=== PATIENT | male | born 1955 | race Caucasian/White ===

== ENCOUNTER 2021-10-30 07:49 | Inpatient (IN) ==
[2021-10-30 08:20] LABS: Basophils % 0.2 % (0.0-0.8); Hemoglobin 16.8 GM/DL (14.0-18.0); Immature Granulocytes % 0.6 %; Immature Granulocytes Absolute 0.12 #; Lymphocytes # 0.7 10*3/uL (1.4-4.0); Lymphocytes % 3.4 % (21.2-54.2); Mean Corpuscular HGB Conc 33.6 GM/DL (32-36); Mean Corpuscular Volume 91.2 FL (87-102); Mean Platelet Volume 10.3 FL (9.6-12.0); Monocytes # 1.2 10*3/uL (0.11-0.8); Monocytes % 5.7 % (1.7-12.7); Neutrophils % 90.1 % (38.7-73.9); Platelet Count 306 T/CUMM (130-400); Red Blood Count 5.48 MC/CUMM (3.8-5.5)
[2021-10-30 08:29] LABS: INR 1.1; PT Patient Result 11.6 SECS (10.1-12.1)
[2021-10-30 08:34] LABS: Albumin 3.7 G/DL (3.4-5.0); Bilirubin,Total 5.1 MG/DL (0.20-1.00); Osmolality,Calculated 279.8 MOS/KG (273-304); Potassium 5.1 MMOL/L (3.5-5.1); Total Protein 7.5 G/DL (6.4-8.2)
[2021-10-30] MEDS ORDERED: SODIUM CHLORIDE 0.9% 1,000 ML IV STA (08:34)
[2021-10-30] MEDS ORDERED: HYDROmorphone 1 MG/1 ML SYRINGE IV STA ×3 (08:34→12:12)
[2021-10-30] MEDS ORDERED: ONDANSETRON 4 MG/2 ML VIAL IV STA (08:36)
[2021-10-30 08:39] LABS: Lymphocytes 2 % (20-55); Platelet Estimate Adequate; Total Cells Counted 100
[2021-10-30 09:34] LABS: Mucus,Urine Many /LPF (Occasional); RBC,Urine 4 /HPF (0-4)
[2021-10-30 09:36] LABS: Bilirubin,Urine Large mg/dL (Negative); Blood, Urine Negative (Negative); Glucose,Urine (UA) Negative (Negative); Ketones,Urine Trace mg/dL (Negative); Nitrite,Urine Negative (Negative); Protein,Urine 100 mg/dL (Negative); Urine Appearance Slightly Cloudy (Clear); Urine Color Amber (Yellow); Urine Specific Gravity > 1.030 (1.001-1.035); Urine Urobilinogen > 8.0 eU/dL (<2.0); Urine pH 5.5 (4.5-8.0)
[2021-10-30] MEDS ORDERED: PIPERACILLIN/TAZOBACTAM 3,375 MG in SODIUM CHLORIDE 0.9% 100 ML IV STA (11:10)
[2021-10-30] MEDS ORDERED: ONDANSETRON 4 MG/2 ML VIAL IV PRN (12:54)
[2021-10-30] MEDS ORDERED: SODIUM CHLORIDE 0.9% 1,000 ML IV SCH (13:00)
[2021-10-30] MEDS ORDERED: HYDROmorphone 1 MG/1 ML SYRINGE IV PRN ×2 (13:01→13:30)
[2021-10-30] MEDS ORDERED: ENOXAPARIN 40 MG/0.4 ML SYRINGE SUBCUT SCH (14:00)
[2021-10-30] MEDS: SODIUM CHLORIDE 0.9% 1,000 ML IV SCH ×2 (14:20→20:44)
[2021-10-30] MEDS: PANTOPRAZOLE 40 MG VIAL IV SCH (14:20)
[2021-10-30 15:36] LABS: Basophils % 0.1 % (0.0-0.8); Hematocrit 48.4 VOL% (42.0-52.0); Hemoglobin 15.9 GM/DL (14.0-18.0); Immature Granulocytes % 0.6 %; Immature Granulocytes Absolute 0.15 #; Lymphocytes # 0.7 10*3/uL (1.4-4.0); Lymphocytes % 2.7 % (21.2-54.2); Mean Corpuscular HGB Conc 32.9 GM/DL (32-36); Mean Corpuscular Volume 91.8 FL (87-102); Mean Platelet Volume 10.1 FL (9.6-12.0); Monocytes # 1.9 10*3/uL (0.11-0.8); Monocytes % 7.8 % (1.7-12.7); Neutrophils % 88.8 % (38.7-73.9); Platelet Count 282 T/CUMM (130-400); Red Blood Count 5.27 MC/CUMM (3.8-5.5); Red Cell Distribution Width 13.2 % (9.3-17.3); White Blood Count 24.4 T/CUMM (4-12)
[2021-10-30] MEDS ORDERED: DIAZEPAM 5 MG TABLET PO ONE (15:37)
[2021-10-30 15:59] LABS: Lymphocytes 1 % (20-55); Platelet Estimate Adequate; Total Cells Counted 100
[2021-10-30] MEDS: ONDANSETRON 4 MG/2 ML VIAL IV PRN (16:55)
[2021-10-30] MEDS: HYDROmorphone 1 MG/1 ML SYRINGE IV PRN ×2 (16:55→21:42)
[2021-10-30] MEDS: PIPERACILLIN/TAZOBACTAM 3,375 MG in SODIUM CHLORIDE 0.9% 100 ML IV SCH (20:59)
[2021-10-31] MEDS: HYDROmorphone 1 MG/1 ML SYRINGE IV PRN ×6 (04:11→21:46)
[2021-10-31] MEDS: PIPERACILLIN/TAZOBACTAM 3,375 MG in SODIUM CHLORIDE 0.9% 100 ML IV SCH ×2 (04:26→13:00)
[2021-10-31 06:20] LABS: Calcium 8.1 MG/DL (8.5-10.1)
[2021-10-31 06:31] LABS: Albumin 2.8 G/DL (3.4-5.0); Bilirubin,Direct 1.37 MG/DL (0.0-0.20); Bilirubin,Indirect 1.3 MG/DL (0.0-1.0); Bilirubin,Total 2.7 MG/DL (0.20-1.00); Osmolality,Calculated 274.1 MOS/KG (273-304); Total Protein 6.6 G/DL (6.4-8.2)
[2021-10-31] MEDS: SODIUM CHLORIDE 0.9% 1,000 ML IV SCH ×3 (07:06→18:06)
[2021-10-31] MEDS: ONDANSETRON 4 MG/2 ML VIAL IV PRN (08:33)
[2021-10-31] MEDS: PANTOPRAZOLE 40 MG VIAL IV SCH (09:39)
[2021-10-31 10:06] LABS: Basophils % 0.1 % (0.0-0.8); Hematocrit 47.1 VOL% (42.0-52.0); Hemoglobin 15.3 GM/DL (14.0-18.0); Immature Granulocytes % 1.4 %; Immature Granulocytes Absolute 0.43 #; Lymphocytes # 0.6 10*3/uL (1.4-4.0); Lymphocytes % 2.1 % (21.2-54.2); Mean Corpuscular HGB Conc 32.5 GM/DL (32-36); Mean Corpuscular Volume 94.2 FL (87-102); Mean Platelet Volume 10.7 FL (9.6-12.0); Monocytes # 2.2 10*3/uL (0.11-0.8); Monocytes % 7.4 % (1.7-12.7); Platelet Count 237 T/CUMM (130-400); Red Cell Distribution Width 13.6 % (9.3-17.3)
[2021-10-31 10:43] LABS: Lymphocytes 1 % (20-55); Platelet Estimate Normal; Polychromasia Slight; Total Cells Counted 100
[2021-10-31] MEDS: MEROPENEM 500 MG in SODIUM CHLORIDE 0.9% 100 ML IV SCH ×2 (14:55→20:48)
[2021-11-01] MEDS: HYDROmorphone 1 MG/1 ML SYRINGE IV PRN ×5 (01:17→19:39)
[2021-11-01] MEDS: SODIUM CHLORIDE 0.9% 1,000 ML IV SCH ×6 (02:15→19:47)
[2021-11-01] MEDS: MEROPENEM 500 MG in SODIUM CHLORIDE 0.9% 100 ML IV SCH ×4 (03:45→19:48)
[2021-11-01 06:50] LABS: Basophils # 0.1 10*3/uL (0.0-0.2); Basophils % 0.2 % (0.0-0.8); Eosinophils # 0.1 10*3/uL (0.0-0.87); Eosinophils % 0.3 % (0.00-10.9); Hematocrit 43.7 VOL% (42.0-52.0); Immature Granulocytes % 2.7 %; Immature Granulocytes Absolute 0.77 #; Lymphocytes % 3.4 % (21.2-54.2); Mean Corpuscular Volume 93.8 FL (87-102); Mean Platelet Volume 10.1 FL (9.6-12.0); Monocytes # 2.1 10*3/uL (0.11-0.8); Monocytes % 7.4 % (1.7-12.7); Platelet Count 197 T/CUMM (130-400); Red Blood Count 4.66 MC/CUMM (3.8-5.5); Red Cell Distribution Width 13.4 % (9.3-17.3); White Blood Count 28.7 T/CUMM (4-12)
[2021-11-01 07:17] LABS: Albumin 2.6 G/DL (3.4-5.0); Bilirubin,Total 1.9 MG/DL (0.20-1.00); Calcium 8.2 MG/DL (8.5-10.1); Potassium 4.3 MMOL/L (3.5-5.1); Total Protein 6.4 G/DL (6.4-8.2)
[2021-11-01 07:22] LABS: Risk Ratio 3.25; Thyroid Stimulating Hormone 0.659 uIU/ml (0.358-3.74)
[2021-11-01 08:09] LABS: Band Neutrophils 1 % (0-10); Lymphocytes 3 % (20-55); Total Cells Counted 100
[2021-11-01 08:10] LABS: Platelet Estimate Normal; Polychromasia Slight
[2021-11-01] MEDS: ONDANSETRON 4 MG/2 ML VIAL IV PRN ×2 (09:01→19:38)
[2021-11-01] MEDS: PANTOPRAZOLE 40 MG VIAL IV SCH (09:01)
[2021-11-01] MEDS ORDERED: hydrALAZINE 20 MG/1 ML VIAL IV PRN (12:18)
[2021-11-01] MEDS: lisinopriL 20 MG TABLET PO SCH ×2 (14:47→21:11)
[2021-11-02] MEDS: HYDROmorphone 1 MG/1 ML SYRINGE IV PRN ×6 (00:32→15:12)
[2021-11-02] MEDS: SODIUM CHLORIDE 0.9% 1,000 ML IV SCH ×4 (01:41→22:44)
[2021-11-02] MEDS: MEROPENEM 500 MG in SODIUM CHLORIDE 0.9% 100 ML IV SCH ×4 (02:17→20:35)
[2021-11-02] MEDS ORDERED: DIAZEPAM 5 MG TABLET PO ONE (06:00)
[2021-11-02] MEDS: LEVOTHYROXINE 112 MCG TABLET PO SCH (06:02)
[2021-11-02 06:40] LABS: Basophils % 0.2 % (0.0-0.8); Eosinophils # 0.2 10*3/uL (0.0-0.87); Eosinophils % 0.9 % (0.00-10.9); Hematocrit 42.1 VOL% (42.0-52.0); Hemoglobin 13.7 GM/DL (14.0-18.0); Immature Granulocytes % 2.3 %; Immature Granulocytes Absolute 0.55 #; Lymphocytes # 1.1 10*3/uL (1.4-4.0); Lymphocytes % 4.5 % (21.2-54.2); Mean Corpuscular HGB Conc 32.5 GM/DL (32-36); Mean Corpuscular Volume 93.6 FL (87-102); Mean Platelet Volume 10.1 FL (9.6-12.0); Monocytes # 1.9 10*3/uL (0.11-0.8); Neutrophils % 84.1 % (38.7-73.9); Platelet Count 203 T/CUMM (130-400); Red Cell Distribution Width 13.2 % (9.3-17.3); White Blood Count 23.7 T/CUMM (4-12)
[2021-11-02 06:59] LABS: Albumin 2.3 G/DL (3.4-5.0); Bilirubin,Total 1.3 MG/DL (0.20-1.00); Calcium 8.3 MG/DL (8.5-10.1); Potassium 3.9 MMOL/L (3.5-5.1); Total Protein 6.1 G/DL (6.4-8.2)
[2021-11-02 07:02] LABS: Lymphocytes 1 % (20-55); Microcytosis Slight; Total Cells Counted 100
[2021-11-02 07:03] LABS: Platelet Estimate Normal
[2021-11-02] MEDS: PANTOPRAZOLE 40 MG VIAL IV SCH (09:14)
[2021-11-02] MEDS: lisinopriL 10 MG TABLET PO SCH (20:33)
[2021-11-03] MEDS: MEROPENEM 500 MG in SODIUM CHLORIDE 0.9% 100 ML IV SCH ×4 (02:36→20:30)
[2021-11-03] MEDS: SODIUM CHLORIDE 0.9% 1,000 ML IV SCH ×2 (04:47→13:16)
[2021-11-03 05:04] LABS: Basophils # 0.1 10*3/uL (0.0-0.2); Basophils % 0.3 % (0.0-0.8); Eosinophils # 0.3 10*3/uL (0.0-0.87); Eosinophils % 1.5 % (0.00-10.9); Hematocrit 39.6 VOL% (42.0-52.0); Immature Granulocytes % 0.9 %; Immature Granulocytes Absolute 0.19 #; Lymphocytes # 0.9 10*3/uL (1.4-4.0); Lymphocytes % 4.1 % (21.2-54.2); Mean Corpuscular HGB Conc 32.8 GM/DL (32-36); Mean Corpuscular Volume 93.2 FL (87-102); Monocytes # 1.9 10*3/uL (0.11-0.8); Neutrophils % 84.2 % (38.7-73.9); Platelet Count 210 T/CUMM (130-400); Red Blood Count 4.25 MC/CUMM (3.8-5.5); White Blood Count 21.1 T/CUMM (4-12)
[2021-11-03 05:28] LABS: Albumin 2.3 G/DL (3.4-5.0); Bilirubin,Total 1.2 MG/DL (0.20-1.00); Osmolality,Calculated 274.7 MOS/KG (273-304); Potassium 4.4 MMOL/L (3.5-5.1); Total Protein 5.5 G/DL (6.4-8.2)
[2021-11-03 05:31] LABS: Eosinophils 2 % (0-10); Lymphocytes 4 % (20-55); Platelet Estimate Adequate; Total Cells Counted 100
[2021-11-03] MEDS: LEVOTHYROXINE 112 MCG TABLET PO SCH (06:04)
[2021-11-03] MEDS: PANTOPRAZOLE 40 MG VIAL IV SCH (08:50)
[2021-11-03] MEDS ORDERED: INDOCYANINE GREEN 25 MG VIAL IV ONE (09:45)
[2021-11-03] MEDS ORDERED: DEXAMETHASONE 4 MG/1 ML VIAL ONE (13:11)
[2021-11-03] MEDS ORDERED: ONDANSETRON 4 MG/2 ML VIAL ONE (13:11)
[2021-11-03] MEDS ORDERED: ROCURONIUM 50 MG/5 ML VIAL IV ONE (13:11)
[2021-11-03] MEDS ORDERED: propofoL 200 MG/20 ML VIAL IV ONE (13:11)
[2021-11-03] MEDS ORDERED: ACETAMINOPHEN INJ 1,000 MG/100 ML VIAL IV ONE (13:11)
[2021-11-03] MEDS ORDERED: MIDAZOLAM 2 MG/2 ML VIAL ONE (13:11)
[2021-11-03] MEDS ORDERED: fentaNYL 100 MCG/2 ML VIAL ONE ×2 (13:11→14:32)
[2021-11-03] MEDS ORDERED: SEVOFLURANE 1 UNIT/15 MINUTE INH ONE (13:11)
[2021-11-03] MEDS ORDERED: TISSUE ADHESIVE 1 EACH APPLICATOR TOP ONE (13:54)
[2021-11-03] MEDS ORDERED: BUPIVACAINE MPF 0.25% 10 ML VIAL ONE (13:54)
[2021-11-03] MEDS ORDERED: LIDOCAINE 2%/EPI 20 ML VIAL ONE (13:55)
[2021-11-03] MEDS ORDERED: ePHEDrine 50 MG/ML VIAL ONE (14:31)
[2021-11-03] MEDS ORDERED: SUGAMMADEX 200 MG/2 ML VIAL IV ONE (14:42)
[2021-11-03] MEDS ORDERED: BISACODYL 5 MG TABLET PO PRN (14:59)
[2021-11-03] MEDS ORDERED: KETOROLAC 15 MG/1 ML VIAL IV PRN (14:59)
[2021-11-03] MEDS ORDERED: ACETAMINOPHEN 325 MG TABLET PO PRN (14:59)
[2021-11-03] MEDS: LACTATED RINGERS 1,000 ML IV SCH ×2 (16:43→22:41)
[2021-11-03] MEDS: lisinopriL 10 MG TABLET PO SCH (20:44)
[2021-11-04] MEDS: MEROPENEM 500 MG in SODIUM CHLORIDE 0.9% 100 ML IV SCH ×2 (02:29→09:02)
[2021-11-04 05:06] LABS: Basophils # 0.1 10*3/uL (0.0-0.2); Basophils % 0.3 % (0.0-0.8); Eosinophils # 0.3 10*3/uL (0.0-0.87); Eosinophils % 1.7 % (0.00-10.9); Hematocrit 38.1 VOL% (42.0-52.0); Hemoglobin 12.7 GM/DL (14.0-18.0); Immature Granulocytes Absolute 0.19 #; Lymphocytes # 1.2 10*3/uL (1.4-4.0); Lymphocytes % 6.4 % (21.2-54.2); Mean Corpuscular HGB Conc 33.3 GM/DL (32-36); Mean Corpuscular Volume 92.3 FL (87-102); Mean Platelet Volume 10.2 FL (9.6-12.0); Monocytes # 1.6 10*3/uL (0.11-0.8); Monocytes % 8.9 % (1.7-12.7); Neutrophils % 81.7 % (38.7-73.9); Platelet Count 231 T/CUMM (130-400); Red Blood Count 4.13 MC/CUMM (3.8-5.5); Red Cell Distribution Width 13.1 % (9.3-17.3); White Blood Count 18.5 T/CUMM (4-12)
[2021-11-04 05:21] LABS: Calcium 7.8 MG/DL (8.5-10.1); Osmolality,Calculated 276.5 MOS/KG (273-304); Potassium 3.1 MMOL/L (3.5-5.1)
[2021-11-04 05:27] LABS: Albumin 2.1 G/DL (3.4-5.0); Bilirubin,Total 0.8 MG/DL (0.20-1.00); Calcium 8.3 MG/DL (8.5-10.1); Osmolality,Calculated 277.5 MOS/KG (273-304); Total Protein 5.6 G/DL (6.4-8.2)
[2021-11-04] MEDS: LACTATED RINGERS 1,000 ML IV SCH (05:27)
[2021-11-04] MEDS ORDERED: POTASSIUM CHLORIDE 20 MEQ TABLET PO PRN (05:49)
[2021-11-04] MEDS: LEVOTHYROXINE 112 MCG TABLET PO SCH (06:12)
[2021-11-04] MEDS: PANTOPRAZOLE 40 MG VIAL IV SCH (09:03)
[2021-11-04] MEDS ORDERED: POTASSIUM CHLORIDE 20 MEQ TABLET PO ONE (09:30)
[2021-11-04 12:42] VITALS: BP 154/69
== END 2021-11-04 14:15 | disposition home or self-care (01) | DRG 418 ==
LOC: N.ED 07:49 → N.EDINP 12:47 → SUATTDRO 12:47 → N.3E 14:56
PROVIDERS: ADMIT Internal Medicine; ATTEND Internal Medicine